=== PATIENT | male | born 1955 | race Caucasian/White ===

== ENCOUNTER → 2017-11-18 | Outpatient (CLI) | payer OTHER | LOC: GMAB 10:28 | PROVIDERS: ATTEND Family Medicine | DX: R06.00 Dyspnea, unspecified (principal) ==

== ENCOUNTER → 2018-01-21 | Outpatient (CLI) | payer BC | LOC: GMAB 11:54 | PROVIDERS: ATTEND Family Medicine | DX: I10 Essential (primary) hypertension (principal); Z12.5 Encounter for screening for malignant neoplasm of prostate ==

== ENCOUNTER → 2019-01-27 | Outpatient (CLI) | payer BC | LOC: GMAE 10:34 | PROVIDERS: ATTEND Family Medicine | DX: Z00.01 Encounter for general adult medical examination with abnormal findings (principal) ==

== ENCOUNTER 2019-02-09 13:09 | Emergency (ER) | payer BC ==
[2019-02-09] MEDS ORDERED: SODIUM CHLORIDE 0.9% (FLUSH) 10 ML SYG IV PRN (14:00)
--- NOTE | 2019-02-09 14:08 | ED.PDOC ---
History of Present Illness - General Chief Complaint: Respiratory Problem Stated Complaint: shortness of breath,dizzy,weak Time Seen by Provider: 02/09/19 13:11 Source: patient Exam Limitations: no limitations - History of Present Illness Initial Comments: PT PRESENTS TO THE ED WITH COMPLAINT OF GENERALIZED WEAKNESS, SOB, AND ABD PAIN FOR THE PAST 4 DAYS. PT STATES THAT HE HAD BEEN SUFFERING FROM MULTIPLE EPISODES OF WATERY DIARRHEA DAILY OVER THE PAST WEEK, HOWEVER SYMPTOMS SUBSIDED A FEW DAYS AGO. PT REPORTS DRINKING PLENTY OF FLUIDS. PT HAS A HISTORY OF CIRRHOSIS OF THE LIVER AND HAD PARACENTESIS PERFORMED 3 WEEKS AGO. PT HAD A ROUTINE ECHO DONE AT THIS FACILITY TODAY JUST PRIOR TO ARRIVAL. Timing/Duration: 1 week Severity: moderate Improving Factors: rest Worsening Factors: movement Associated Symptoms: loss of appetite, shortness of breath, weakness Allergies/Adverse Reactions: Allergies NO KNOWN ALLERGY Allergy (Verified 02/09/19 13:45) Home Medications: Ambulatory Orders Aspirin [Aspirin Childrens] 81 mg PO DAILY 02/09/19 Atorvastatin Calcium 40 mg PO DAILY 02/09/19 Ferrous Sulfate Dried [Ferrous Sulfate Iron] 1 tablet PO DAILY 02/09/19 Furosemide Tab [Lasix Tab] 40 mg PO DAILY 02/09/19 Glipizide 10 mg PO BID 02/09/19 Metformin HCl [Glucophage] 1,000 mg PO BID 02/09/19 Pantoprazole Tablet [Protonix] 40 mg PO BID 02/09/19 Propranolol HCl 40 mg PO BID 02/09/19 Spironolactone 50 mg PO DAILY 02/09/19 Review of Systems - Review of Systems Constitutional: States: malaise, weakness. Denies: chills, fever EENTM: Denies: nose congestion, throat pain Respiratory: States: short of breath. Denies: cough Cardiology: Denies: chest pain, palpitations Gastrointestinal/Abdominal: States: see HPI, abdominal pain, diarrhea Genitourinary: Denies: dysuria, frequency Musculoskeletal: Denies: joint pain, joint swelling Skin: Denies: dryness, lesions Neurological: States: weakness. Denies: headache, numbness Endocrine: States: no symptoms reported Hematologic/Lymphatic: States: easy bleeding Past Medical History (General) - Patient Medical History Hx Stroke: No Hx Cardiac Disorders: Yes Hx Diabetes: Yes - Vaccination History Hx Influenza Vaccination: No Hx Pneumococcal Vaccination: Yes - Social History Hx Tobacco Use: Yes Family Medical History - Family History Mother Family History: Unknown Living Status: Unknown Physical Exam - Physical Exam General Appearance: Alert, Obese, Well Groomed, Well Hydrated, Other - APPEARS UNCOMFORTABLE Eye Exam: bilateral normal Neck: supple, normal inspection Cardiovascular/Chest: regular rate, rhythm, systolic murmur Gastrointestinal/Abdominal: soft, tenderness - MILD DIFFUSE, other - PROTUBERANT, (+)FLUID WAVE Extremity: non-tender, normal inspection, no pedal edema, no calf tenderness Neurologic: alert, normal mood/affect, oriented x 3 Skin Exam: warm/dry, jaundice Progress - Progress Progress: 02/09/19 15:15 PT CONTINUES TO COMPLAIN OF PAIN IN THE ABDOMEN. IV MORPHINE ORDERED ALONG WITH IV CT ABD/PEL. LABS AND DIAGNOSTICS RESULTED THUS FAR DISCUSSED WITH PT AND FAMILY. - Results/Orders Results/Orders: Laboratory Tests 02/09/19 02/09/19 14:14 14:14 WBC 14.5 H RBC 4.82 Hgb 14.6 Hct 43.9 MCV 91.1 MCH 30.3 MCHC 33.2 RDW 15.1 H Plt Count 92 L MPV 10.4 Absolute Neuts (auto) 12.80 H Absolute Lymphs (auto) 0.80 L Absolute Monos (auto) 0.70 Absolute Eos (auto) 0.20 Absolute Basos (auto) 0.00 Neutrophils % 87.9 H Lymphocytes % 5.7 L Monocytes % 4.5 Eosinophils % 1.7 Basophils % 0.2 PT 13.8 H INR 1.38 H PTT (SP) 29.2 Sodium 125 L Potassium 4.4 Chloride 96 L Carbon Dioxide 21 Anion Gap 12.4 BUN 22 H Creatinine 1.08 BUN/Creatinine Ratio 20.4 H Random Glucose 301 H Serum Osmolality 266.1 L Calcium 7.5 L Magnesium 2.0 Total Bilirubin 2.6 H* Direct Bilirubin 1.1 H Indirect Bilirubin 1.5 H AST 102 H ALT 42 Alkaline Phosphatase 158 H Ammonia 51 H* Creatine Kinase 61 CK-MB (CK-2) 1.8 CK-MB (CK-2) % Not Reportable Troponin I 0.03 B-Natriuretic Peptide 95.8 Serum Total Protein 6.2 L Albumin 2.1 L - EKG/XRAY/CT EKG: Sinus - @90BPM, NL INTERVALS, NL AXIS, no ST T wave changes - NO OLD EKG FOR COMPARISON Departure - Departure Clinical Impression: Acute hepatic encephalopathy, Hyponatremia, Pyelonephritis, History of cirrhosis of liver, Ascites, Dyspnea Time of Disposition: 17:50 Disposition: Transfer to Hospital Condition: Fair Departure Forms: ED Discharge - Pt. Copy, Patient Portal Self Enrollment Referrals: MYLA MARKHAM MD [Primary Care Provider] - 1-2 Weeks Home Medications: Ambulatory Orders Aspirin [Aspirin Childrens] 81 mg PO DAILY 02/09/19 Atorvastatin Calcium 40 mg PO DAILY 02/09/19 Ferrous Sulfate Dried [Ferrous Sulfate Iron] 1 tablet PO DAILY 02/09/19 Furosemide Tab [Lasix Tab] 40 mg PO DAILY 02/09/19 Glipizide 10 mg PO BID 02/09/19 Metformin HCl [Glucophage] 1,000 mg PO BID 02/09/19 Pantoprazole Tablet [Protonix] 40 mg PO BID 02/09/19 Propranolol HCl 40 mg PO BID 02/09/19 Spironolactone 50 mg PO DAILY 02/09/19 Transfer to Outside Facility - Transfer Information Accepting Provider:: DR. CHEATHAM Accepting Facility: [facility] Reason for Transfer: required specialist not available - GASTROENTEROLOGY
--- NOTE | 2019-02-09 14:41 | RAD ---
EXAM DESCRIPTION: Chest,1 View CLINICAL HISTORY: Shortness of breath FINDINGS/ IMPRESSION: Heart size top limits normal. Pulmonary vascular congestion with slight indistinctness in the perihilar regions compatible with early interstitial edema. No dense alveolar consolidation or pleural effusion No pneumothorax or acute bony abnormality Electronically signed by: Alexis Bedolla MD 02/09/2019 2:39 PM CDT
[2019-02-09] MEDS ORDERED: MORPHINE SULFATE INJ 10 MG/ML VIAL IV ONE (15:05)
[2019-02-09] MEDS ORDERED: ONDANSETRON INJ 4 MG/2 ML VIAL IV ONE (15:06)
--- NOTE | 2019-02-09 16:07 | CT ---
EXAM DESCRIPTION: CT abdomen and pelvis with contrast CLINICAL HISTORY: Abdomen pain. Elevated white blood cell count. COMPARISON: None Available. TECHNIQUE: Spiral CT with multiplanar reformatted images. Intravenous iodinated nonionic contrast This exam was performed according to our departmental dose-optimization program, which includes automated exposure control, adjustment of the mA and/or kV according to patient size and/or use of iterative reconstruction technique. FINDINGS: Subtle patchy areas of hypoenhancement bilateral renal parenchymal cortex most evident posterior lower pole left kidney axial image 60. Several other subtle regions of cortical hypoenhancement. No hydronephrosis, nephrolithiasis, ureterolithiasis or bladder calculus Prostate hypertrophy with course calcifications. Mildly thick-walled urinary bladder likely from chronic low-grade bladder outlet obstruction. No bladder mass lesion or surrounding inflammation Cirrhosis with splenomegaly and portosystemic collateral/recanalized periumbilical vein. Large volume ascites. No hepatic mass lesion to suggest hepatocellular carcinoma. Normal contrast enhancement of portal, splenic and superior mesenteric veins. Small reactive lymph nodes in the diego hepatis and celiac axis. Mildly distended gallbladder. Minimal high density in the dependent gallbladder axial image 39 probably tiny stones. No biliary ductal obstruction No mass lesion of the spleen, pancreas or adrenal glands No mass lesion or focal inflammatory process in the stomach, small or large intestine Multilevel degenerative change in the spine. No acute bony abnormality IMPRESSION: Subtle multifocal bilateral renal parenchymal hypoenhancement suggesting pyelonephritis. Cirrhosis, splenomegaly, ascites and portosystemic collaterals Electronically signed by: Alexis Bedolla MD 02/09/2019 4:04 PM CDT
[2019-02-09] MEDS ORDERED: SODIUM CHLORIDE 0.9% 1000ML 1,000 ML IVS ONE (16:46)
[2019-02-09] MEDS ORDERED: cefTRIAXone SODIUM 1 GM in SODIUM CHL 0.9% 50ML MIN-BAG+ 50 ML IVPB ONE (16:50)
[2019-02-09] MEDS ORDERED: cefTRIAXone SODIUM 1 GM VIAL ONE (16:55)
[2019-02-09] MEDS ORDERED: SODIUM CHL 0.9% 50ML MIN-BAG+ 50 ML IVPB ONE (16:55)
[2019-02-09] MEDS ORDERED: LACTULOSE SYRUP 20 GM/30 ML UD PO ONE (17:09)
[2019-02-09 18:52] VITALS: O2SAT 93
[2019-02-09 19:15] VITALS: BP 138/98
[2019-02-09 19:41] VITALS: TEMP 97
== END 2019-02-09 19:41 | disposition short-term general hospital (02) ==
LOC: ER 13:09
DX: K72.00 Acute and subacute hepatic failure without coma (principal); N12 Tubulo-interstitial nephritis, not specified as acute or chronic; E87.1 Hypo-osmolality and hyponatremia; R06.00 Dyspnea, unspecified; K74.60 Unspecified cirrhosis of liver; R18.8 Other ascites; I51.9 Heart disease, unspecified; E11.9 Type 2 diabetes mellitus without complications; Z87.891 Personal history of nicotine dependence; Z79.82 Long term (current) use of aspirin; Z79.899 Other long term (current) drug therapy
CPT/HCPCS: 36415; 71045; 74177; 80048; 80076; 81001; 82140; 82550; 82553; 83880; 84484; 85025; 85610; 85730; 87040; 87086; 93005; J0696; J2270; J2405; J7030; J7050

== ENCOUNTER → 2019-03-01 | Outpatient (CLI) | payer SELFPAY | LOC: GMAE 16:14 | PROVIDERS: ATTEND Family Medicine | DX: K70.30 Alcoholic cirrhosis of liver without ascites (principal) ==

== ENCOUNTER → 2019-05-31 | Outpatient (CLI) | payer BC | LOC: GMAE 11:16 | PROVIDERS: ATTEND Family Medicine | DX: K92.2 Gastrointestinal hemorrhage, unspecified (principal) ==

== ENCOUNTER → 2020-01-03 | Outpatient (CLI) | payer BC | LOC: GMAE 08:54 | PROVIDERS: ATTEND Family Medicine | DX: K74.60 Unspecified cirrhosis of liver (principal) ==

== ENCOUNTER → 2020-02-24 | Outpatient (CLI) | payer BC | LOC: GMAE 08:35 | PROVIDERS: ATTEND Family Medicine | DX: Z00.00 Encounter for general adult medical examination without abnormal findings (principal) ==

== ENCOUNTER → 2020-06-27 | Outpatient (CLI) | payer BC | LOC: GMAE 15:20 | PROVIDERS: ATTEND Family Medicine | DX: K74.60 Unspecified cirrhosis of liver (principal) ==